=== PATIENT | male | born 1935 | race Caucasian/White ===

== ENCOUNTER 2025-06-03 09:43 | Outpatient (CLI) | payer MEDICARE, SELFPAY | END 2025-06-03 09:44 | disposition home or self-care (01) | LOC: RAD 09:44 | PROVIDERS: PCP Internal Medicine; Visit Provider Internal Medicine Cardiovascular Disease | DX: I25.10 Atherosclerotic heart disease of native coronary artery without angina pectoris (principal); I35.0 Nonrheumatic aortic (valve) stenosis; I48.91 Unspecified atrial fibrillation | CPT/HCPCS: 93306 ==

== ENCOUNTER 2025-09-16 07:58 | Outpatient (CLI) | payer MEDICARE, SELFPAY | END 2025-09-16 07:59 | disposition home or self-care (01) | LOC: NFLDREF 09-21 09:13 | PROVIDERS: PCP Internal Medicine; Referring Provider Internal Medicine; Visit Provider Internal Medicine | DX: E78.2 Mixed hyperlipidemia (principal); Z12.5 Encounter for screening for malignant neoplasm of prostate | CPT/HCPCS: 80053; 80061; G0103 ==